=== PATIENT | female | born 1955 | race Caucasian/White ===

== ENCOUNTER 2018-01-15 05:13 | Outpatient (CLI) | payer BC | END 2018-01-15 23:59 | disposition home or self-care (01) | LOC: DIABETIC 05:13 | PROVIDERS: ATTEND Surgery | DX: E66.01 Morbid (severe) obesity due to excess calories (principal); E11.9 Type 2 diabetes mellitus without complications; I10 Essential (primary) hypertension | CPT/HCPCS: 97802 ==

== ENCOUNTER 2018-02-10 00:12 | Outpatient (CLI) | payer BC | END 2018-02-10 23:59 | disposition home or self-care (01) | LOC: DIABETIC 00:12 | PROVIDERS: ATTEND Surgery | DX: E66.01 Morbid (severe) obesity due to excess calories (principal); E11.9 Type 2 diabetes mellitus without complications | CPT/HCPCS: 97802 ==

== ENCOUNTER 2018-03-03 03:37 | Outpatient (CLI) | payer BC | END 2018-03-03 23:59 | disposition home or self-care (01) | LOC: DIABETIC 03:37 | PROVIDERS: ATTEND Surgery | DX: E66.01 Morbid (severe) obesity due to excess calories (principal); E11.9 Type 2 diabetes mellitus without complications | CPT/HCPCS: 97802 ==

== ENCOUNTER 2018-03-29 04:41 | Outpatient (CLI) | payer BC | END 2018-03-29 23:59 | disposition home or self-care (01) | LOC: DIABETIC 04:41 | PROVIDERS: ATTEND Surgery | DX: E66.01 Morbid (severe) obesity due to excess calories (principal); E11.9 Type 2 diabetes mellitus without complications; I10 Essential (primary) hypertension | CPT/HCPCS: 97802 ==

== ENCOUNTER 2018-05-03 02:41 | Outpatient (CLI) | payer BC | END 2018-05-03 23:59 | disposition home or self-care (01) | LOC: DIABETIC 02:41 | PROVIDERS: ATTEND Surgery | DX: E66.01 Morbid (severe) obesity due to excess calories (principal); E11.9 Type 2 diabetes mellitus without complications | CPT/HCPCS: 97802 ==

== ENCOUNTER 2019-04-11 02:29 | Outpatient (CLI) | payer BC | END 2019-04-11 23:59 | disposition home or self-care (01) | LOC: DIABETIC 02:29 | PROVIDERS: ATTEND Surgery | DX: E66.01 Morbid (severe) obesity due to excess calories (principal) | CPT/HCPCS: 97802 ==

== ENCOUNTER 2022-08-06 22:25 | Emergency (ER) | payer MEDICARE, BC ==
[~2022-08-06] VITALS: Ht 154.9 cm; Wt 113.6 kg
[2022-08-07 00:56] VITALS: BP 164/74
== END 2022-08-07 01:46 | disposition home or self-care (01) ==
LOC: ER 22:26
DX: Z04.3 Encounter for examination and observation following other accident (principal); M25.511 Pain in right shoulder; M19.90 Unspecified osteoarthritis, unspecified site; Z88.1 Allergy status to other antibiotic agents; Z91.041 Radiographic dye allergy status; Z91.011 Allergy to milk products; Z88.0 Allergy status to penicillin; Z88.8 Allergy status to other drugs, medicaments and biological substances; Z91.09 Other allergy status, other than to drugs and biological substances; W19.XXXA Unspecified fall, initial encounter; Y93.89 Activity, other specified; Y92.89 Other specified places as the place of occurrence of the external cause; Y99.8 Other external cause status
CPT/HCPCS: 73130; 73630; 99284